=== PATIENT | female | born 1955 | race Caucasian/White ===

== ENCOUNTER 2018-05-02 09:43 | Outpatient (CLI) | payer MEDICARE, MEDICAID | END 2018-05-02 09:44 | disposition EMS.NT | LOC: EMS 09:43 | PROVIDERS: ATTEND Surgery | DX: S49.92XA Unspecified injury of left shoulder and upper arm, initial encounter (principal); W00.0XXA Fall on same level due to ice and snow, initial encounter ==

== ENCOUNTER 2018-05-02 10:36 | Emergency (ER) | payer MEDICARE, MEDICAID ==
--- NOTE | 2018-05-02 11:43 | XRAY Report ---
Reason: fall/pain Procedure Date: 05/02/2018 Accession Number: [id number] / [id number] Procedure: XR - Humerus LT CPT Code: FULL RESULT: EXAM: LEFT HUMERUS RADIOGRAPHY EXAM DATE: 05/02/2018 11:32 AM. CLINICAL HISTORY: Fall/pain. COMPARISON: None. TECHNIQUE: 2 views. FINDINGS: Bones: There is a fracture of the proximal left humerus, likely the surgical with minimal comminution. Suggest detailed left shoulder x-rays. Otherwise the left humerus is intact. Joints: Grossly anatomically aligned. Soft Tissues: Mild soft tissue swelling. IMPRESSION: Proximal left humerus fracture. Suggest detailed left shoulder plain films to define the fracture lines. RADIA
[2018-05-02] MEDS ORDERED: HYDROcod/ACETAM 5/325 MG TABLET PO STA (12:35)
[2018-05-02] MEDS ORDERED: oxyCODONE 5 MG TABLET PO STA (12:35)
--- NOTE | 2018-05-02 12:56 | ED Physician Documentation ---
PD HPI UPPER EXT INJURY - Stated complaint Stated Complaint: L ARM INJURY - Chief complaint Chief Complaint: Trauma Ext - History obtained from History obtained from: Patient, Family - History of Present Illness Location: Left, Shoulder Type of injury: Fall Where injury occurred: Home Timing - onset: Yesterday Timing - duration: Days (1) Timing - details: Abrupt onset Pain level max: 10 Pain level now: 8 Improved by: Rest, Ice, Immobilization Worsened by: Moving, Palpating Associated symptoms: Discolored (bruising). No: Weakness, Numbness, Tingling, Swelling Contributing factors: No: Anticoagulated, Prior ortho surgery Similar symptoms before: Has not had sx before Recently seen: Not recently seen Review of Systems Constitutional: denies: Fever, Chills Skin: denies: Rash Musculoskeletal: denies: Neck pain, Back pain Neurologic: denies: Headache PD PAST MEDICAL HISTORY - Past Medical History Cardiovascular: Hypertension, High cholesterol Respiratory: None Endocrine/Autoimmune: None GI: GERD : Frequency HEENT: Chronic sinusitis Psych: Anxiety, Post traumatic stress disorder Derm: None - Past Surgical History Past Surgical History: Yes HEENT: Tonsil/Adenoidectomy - Present Medications Home Medications: Ambulatory Orders Medication Instructions Recorded Confirmed Alprazolam [Xanax] 1 tab PO BID PRN 02/02/15 05/02/18 Lisinopril 20 mg pe PO DAILY 02/02/15 05/02/18 Ranitidine HCl [Zantac] 1 tab PO DAILY 02/02/15 05/02/18 Atorvastatin Calcium 20 mg PO DAILY 05/02/18 05/02/18 Citalopram [CeleXA] 1 tab PO DAILY 05/02/18 05/02/18 Oxycodone HCl/Acetaminophen 1 - 2 each PO Q6H PRN #14 tablet 05/02/18 [Percocet 5-325 mg Tablet] - Allergies Allergies/Adverse Reactions: Allergies Allergy/AdvReac Type Severity Reaction Status Date / Time No Known Drug Allergies Allergy Verified 05/02/18 10:42 - Social History Does the pt smoke?: Yes Smoking Status: Current every day smoker Does the pt drink ETOH?: Yes Does the pt have substance abuse?: No PD ED PE NORMAL - Vitals Vital signs reviewed: Yes - General General: Alert and oriented X 3, No acute distress - HEENT HEENT: Moist mucous membranes - Neck Neck: Supple, no meningeal sign, No bony TTP - Cardiac Cardiac: RRR - Respiratory Respiratory: No respiratory distress, Clear bilaterally - Derm Derm: Warm and dry - Extremities Extremities: Other (TTP L upper arm. NVI. ecchymosis present. ) - Neuro Neuro: Alert and oriented X 3 Results - Vitals Vitals: Vital Signs - 24 hr 05/02/18 05/02/18 10:40 13:24 Temperature 36.1 C L 36.2 C L Heart Rate 91 88 Respiratory 18 18 Rate Blood Pressure 141/97 H 138/89 H O2 Saturation 95 95 Oxygen O2 Source Room air - Rads (name of study) L humerus xray Radiology: Prelim report reviewed, EMP read contemporaneously, See rad report (Proximal left humerus fracture. Suggest detailed left shoulder plain films to define the fracture lines. ) L shoulder xray Radiology: Prelim report reviewed, EMP read contemporaneously, See rad report (Left humeral head fracture ) PD MEDICAL DECISION MAKING - ED course Complexity details: reviewed results, re-evaluated patient, considered differential, d/w patient ED course: 63-year-old female with a left proximal humerus fracture after falling on the ice yesterday. She came in today for evaluation. Placed in a sling for comfort. She is right-handed. Will prescribe pain medication for home and follow-up with orthopedics. She is neurovascular intact. Patient counseled regarding signs and symptoms for which I believe and urgent re-evaluation would be necessary. Patient with good understanding of and agreement to plan and is comfortable going home at this time This document was made in part using voice recognition software. While efforts are made to proofread this document, sound alike and grammatical errors may occur. Departure - Departure Disposition: 01 Home, Self Care Clinical Impression: Humerus fracture Qualifiers: Encounter type: initial encounter Humerus Location: proximal Fracture type: closed Fracture morphology: unspecified fracture morphology Laterality: left Qualified Code(s): S42.202A - Unspecified fracture of upper end of left humerus, initial encounter for closed fracture Condition: Good Instructions: ED Fx Upper Ext Follow-Up: Pavan Wolf MD [Primary Care Provider] - [facility] [Provider Group] - Within 1 week Prescriptions: Oxycodone HCl/Acetaminophen [Percocet 5-325 mg Tablet] 1 - 2 each PO Q6H PRN #14 tablet PRN Reason: pain Comments: Use the pain medication as needed. Stay in the sling until released by orthopedics. Follow-up with orthopedics for further care. Do not drink alcohol or drive while on narcotic pain medicine. Note that many narcotic pain relievers also contain tylenol/acetaminophen. Please ensure that your total dose of acetaminophen from all sources does not exceed 3 grams (3000mg) per day. You may constipated on this medication, take a stool softener such as "Colace" twice a day while you are on it. Also recommend a kvjn-zjg-pvjoiek laxative such as senna or MiraLAX any day that you do not have a bowel movement. If you received narcotic pain medication in the emergency department, do not drive or operate machinery for the next 24 hours. Discharge Date/Time: 05/02/18 13:20
[2018-05-02 13:27] VITALS: BP 138/89
--- NOTE | 2018-05-02 14:01 | XRAY Report ---
Reason: LEFT HUMERUS FRACTURE Procedure Date: 05/02/2018 Accession Number: [id number] / [id number] Procedure: XR - Shoulder 2 View LT CPT Code: FULL RESULT: EXAM: LEFT SHOULDER RADIOGRAPHY EXAM DATE: 05/02/2018 01:00 PM. CLINICAL HISTORY: LEFT HUMERUS FRACTURE. COMPARISON: None. TECHNIQUE: 2 views. FINDINGS: Bones: Left humeral comminuted surgical neck fracture. Humeral head remains anatomically aligned with one toy. Joints: The glenohumeral and acromioclavicular joints show minor degenerative change. Soft tissues: The included hemithorax is unremarkable. Mild soft tissue swelling. IMPRESSION: Left humeral head fracture RADIA
== END 2018-05-02 13:20 | disposition home or self-care (01) ==
LOC: ED 10:36
DX: S42.202A Unspecified fracture of upper end of left humerus, initial encounter for closed fracture (principal); W00.0XXA Fall on same level due to ice and snow, initial encounter; Y92.009 Unspecified place in unspecified non-institutional (private) residence as the place of occurrence of the external cause; I10 Essential (primary) hypertension; E78.00 Pure hypercholesterolemia, unspecified; F17.200 Nicotine dependence, unspecified, uncomplicated
CPT/HCPCS: 73030; 73060; 99283; A9270

== ENCOUNTER 2018-08-16 10:10 | Emergency (ER) | payer MEDICARE, MEDICAID ==
--- NOTE | 2018-08-16 11:10 | ED Physician Documentation ---
PD HPI LOWER EXT INJURY - Stated complaint Stated Complaint: R LEG INJ - Chief complaint Chief Complaint: Trauma Ext - History obtained from History obtained from: Patient - History of Present Illness PD HPI LOW EXT INJURY LOCATION: Right, Upper leg Type of injury: Fall Where injury occurred: Home Timing - onset: How many days ago (6) Worsened by: Moving, Palpating Similar symptoms before: Has not had sx before - Additional information Additional information: The patient is a 63-year-old female who presents with pain in her right leg. 6 days ago she tripped and fell in her house, landing on hardwood sandra. She was able to stand initially after the injury, but it has been constantly aching with intermittent sharp pain since that time. The pain is worse with movement, palpation, or weightbearing. She denies any other injuries. Past history is significant for ORIF of a right tib-fib fracture many years ago. Review of Systems Constitutional: denies: Fever Nose: denies: Congestion Throat: denies: Sore throat Cardiac: denies: Chest pain / pressure Respiratory: denies: Dyspnea, Cough GI: denies: Abdominal Pain, Vomiting : denies: Dysuria Skin: denies: Rash Musculoskeletal: reports: Extremity pain (right upper leg). denies: Back pain Neurologic: denies: Focal weakness, Numbness, Headache, Head injury PD PAST MEDICAL HISTORY - Past Medical History Cardiovascular: Hypertension, High cholesterol Respiratory: None Endocrine/Autoimmune: None GI: GERD : Frequency HEENT: Chronic sinusitis Psych: Anxiety, Post traumatic stress disorder Derm: None - Past Surgical History Past Surgical History: Yes HEENT: Tonsil/Adenoidectomy - Present Medications Home Medications: Ambulatory Orders Medication Instructions Recorded Confirmed Alprazolam [Xanax] 1 tab PO BID PRN 02/02/15 05/02/18 Lisinopril 20 mg pe PO DAILY 02/02/15 05/02/18 Ranitidine HCl [Zantac] 1 tab PO DAILY 02/02/15 05/02/18 Atorvastatin Calcium 20 mg PO DAILY 05/02/18 05/02/18 Citalopram [CeleXA] 1 tab PO DAILY 05/02/18 05/02/18 Oxycodone HCl/Acetaminophen 1 - 2 each PO Q6H PRN #14 tablet 05/02/18 [Percocet 5-325 mg Tablet] - Allergies Allergies/Adverse Reactions: Allergies Allergy/AdvReac Type Severity Reaction Status Date / Time No Known Drug Allergies Allergy Verified 08/16/18 10:31 - Social History Does the pt smoke?: Yes Smoking Status: Current every day smoker Does the pt drink ETOH?: Yes Does the pt have substance abuse?: No PD ED PE NORMAL - Vitals Vital signs reviewed: Yes (hypertensive) - General General: Alert and oriented X 3, Well developed/nourished - HEENT HEENT: Atraumatic - Neck Neck: No bony TTP - Cardiac Cardiac: RRR - Respiratory Respiratory: No respiratory distress, Clear bilaterally - Abdomen Abdomen: Soft, Non tender - Back Back: No spinal TTP - Derm Derm: No rash - Extremities Extremities: No edema, No calf tenderness / cord, Other (There is faint ecchymosis on the lateral aspect of the right proximal thigh, with associated tenderness to palpation. There is no break in the integument, and no hip tenderness. There are well-healed surgical scars of the lower leg, with slightly decreased light touch sensation distal to the surgical scarring.) - Neuro Neuro: Alert and oriented X 3, No motor deficit, Normal speech Results - Vitals Vitals: Vital Signs - 24 hr 08/16/18 08/16/18 10:26 12:56 Temperature 36.8 C 36.4 C L Heart Rate 86 78 Respiratory 16 12 Rate Blood Pressure 158/111 H 176/104 H O2 Saturation 98 98 Oxygen O2 Source Room air - Rads (name of study) right femur Radiology: Prelim report reviewed, EMP read contemporaneously, See rad report (No evidence of fracture or other bony abnormality.) PD MEDICAL DECISION MAKING - ED course Complexity details: reviewed old records, reviewed results, re-evaluated patient, considered differential, d/w patient ED course: The patient's presentation is most consistent with contusion to the right thigh. There is no evidence of bony abnormality on radiographic imaging of the femur. Treatment in the emergency department included administration of oxycodone 5 mg orally. I discussed with her the expected course of injury, symptomatic treatment and outpatient follow-up, as well as potentially worrisome signs or symptoms that should prompt reevaluation in the emergency department. Departure - Departure Disposition: 01 Home, Self Care Clinical Impression: Contusion of right thigh Qualifiers: Encounter type: initial encounter Qualified Code(s): S70.11XA - Contusion of right thigh, initial encounter Condition: Stable Instructions: ED Contusion Lower Ext Follow-Up: Pavan Wolf MD [Primary Care Provider] - Comments: Apply ice pack to your right thigh intermittently. You can use previously prescribed pain medication as needed. Let pain be your guide to activity level. Follow-up with your primary physician within 2 weeks. Call to schedule an appointment. Return to the emergency department if you develop increasing pain or swelling, or otherwise worse Discharge Date/Time: 08/16/18 13:04
--- NOTE | 2018-08-16 11:55 | XRAY Report ---
Reason: fall Procedure Date: 08/16/2018 Accession Number: [id number] / [id number] Procedure: XR - Femur 2V RT CPT Code: FULL RESULT: EXAM: RIGHT FEMUR RADIOGRAPHY EXAM DATE: 08/16/2018 11:00 AM. CLINICAL HISTORY: Fall. COMPARISON: HUMERUS LT 05/02/2018 11:22 AM. TECHNIQUE: 2 views. FINDINGS: Bones: Osteopenia No fracture or bone lesion. Post plate and screws in the tibia Joints: Degenerative changes at the knee. Mild degenerative changes at the hip. Soft Tissues: Normal. No soft tissue swelling. IMPRESSION: Normal femur radiography. If the patient cannot ambulate recommend MRI RADIA
[2018-08-16] MEDS ORDERED: oxyCODONE 5 MG TABLET PO STA (12:28)
[2018-08-16 12:57] VITALS: BP 176/104
== END 2018-08-16 13:04 | disposition home or self-care (01) ==
LOC: ED 10:10
DX: S70.11XA Contusion of right thigh, initial encounter (principal); W01.0XXA Fall on same level from slipping, tripping and stumbling without subsequent striking against object, initial encounter; Y92.009 Unspecified place in unspecified non-institutional (private) residence as the place of occurrence of the external cause; I10 Essential (primary) hypertension; F17.200 Nicotine dependence, unspecified, uncomplicated
CPT/HCPCS: 73552; 99282; 99283; A9270

== ENCOUNTER 2019-03-27 09:20 | Outpatient (CLI) | payer MEDICARE, MEDICAID ==
[2019-03-27 11:57] LABS: BASOPHILS # (AUTO) 0.1 10^3/uL (0.0-0.1); BASOPHILS % (AUTO) 1.3 %; EOSINOPHILS # (AUTO) 0.2 10^3/uL (0.0-0.7); HGB - HEMOGLOBIN 12.3 g/dL (12.0-16.0); LYMPHOCYTES # (AUTO) 1.2 10^3/uL (1.5-3.5); LYMPHOCYTES % (AUTO) 21.8 %; MEAN CORPUSCULAR HEMOGLOBIN 32.5 pg (27.0-31.0); MEAN CORPUSCULAR HGB CONC 32.5 g/dL (32.0-36.0); MONOCYTES # (AUTO) 0.4 10^3/uL (0.0-1.0); NEUTROPHILS # (AUTO) 3.6 10^3/uL (1.5-6.6); NEUTROPHILS % (AUTO) 64.4 %; PLT - PLATELET COUNT 230 10^3/uL (130-450); RED BLOOD COUNT 3.79 10^6/uL (4.20-5.40); RED CELL DISTRIBUTION WIDTH 15.4 % (12.0-15.0); WHITE BLOOD COUNT 5.5 x10^3/uL (4.8-10.8)
[2019-03-27 12:31] LABS: ALBUMIN 3.5 g/dL (3.2-5.5); ALBUMIN/GLOBULIN RATIO 1.1 (1.0-2.2); ALKALINE PHOSPHATASE 139 IU/L (42-121); ALT ALANINE AMINOTRANSFERASE 12 IU/L (10-60); AST ASPARTATE AMINOTRANSFERASE 27 IU/L (10-42); BILIRUBIN,TOTAL 0.8 mg/dL (0.2-1.0); BUN - BLOOD UREA NITROGEN 6 mg/dL (6-20); CALCIUM 8.6 mg/dL (8.5-10.3); CARBON DIOXIDE - CO2 25 mmol/L (21-32); CHLORIDE 105 mmol/L (101-111); CHOLESTEROL 140 mg/dL; CREATININE 0.8 mg/dL (0.4-1.0); GFR - MDRD 72 (>89); GLUCOSE 110 mg/dL (70-100); HDL CHOLESTEROL 47 mg/dL; SODIUM 140 mmol/L (135-145); TOTAL PROTEIN 6.7 g/dL (6.7-8.2)
[2019-03-27 13:55] LABS: HB2 TOTAL 12.2 g/dL; HEMOGLOBIN A1C 0.37 g/dL; HEMOGLOBIN A1C % 4.9 % (4.6-6.2)
[2019-03-27 14:06] LABS: LDL CHOLESTEROL,DIRECT 34 mg/dL; LDLD/HDL RATIO 0.7 (<4.4)
== END 2019-03-27 23:59 | disposition home or self-care (01) ==
LOC: LAB.N 09:20
PROVIDERS: ATTEND Family Medicine
DX: E11.9 Type 2 diabetes mellitus without complications (principal); I10 Essential (primary) hypertension; E78.5 Hyperlipidemia, unspecified
CPT/HCPCS: 36415; 80053; 80061; 83036; 83721; 84443; 85025

== ENCOUNTER 2019-11-18 10:17 | Outpatient (CLI) | payer MEDICARE, MEDICAID ==
--- NOTE | 2019-11-19 09:44 | Mammography Report ---
BILATERAL DIGITAL SCREENING MAMMOGRAM 3D/2D: 11/18/2019 CLINICAL: Routine screening. Comparison is made to exams dated: 11/04/2017 mammogram, 12/03/2015 mammogram, and 08/29/2013 mammogram - [facility]. There are scattered fibroglandular elements in both breasts. No significant masses, calcifications, or other findings are seen in either breast. There has been no significant interval change. IMPRESSION: NEGATIVE There is no mammographic evidence of malignancy. A 1 year screening mammogram is recommended. This exam was interpreted at Station ID: [id number]. NOTE: For mammograms, a report in lay terms will be sent to the patient. Approximately 15% of breast malignancies will not be visualized mammographically. In the management of a palpable breast mass, a negative mammogram must not discourage biopsy of a clinically suspicious lesion. Electronically Signed By: Jesus Boo M.D. ddp/penrad:11/18/2019 13:35:54 ACR BI-RADS Category 1: Negative 3341F PARENCHYMAL PATTERN: (A) - The breast(s) demonstrate(s) scattered fibroglandular densities. BI-RADS CATEGORY: (1) - 1 RECOMMENDATION: (ANNUAL) - Recommend routine annual screening mammography. [id number] 1 year screening LATERALITY: (B)
== END 2019-11-18 10:18 | disposition home or self-care (01) ==
LOC: DI.N 10:17
PROVIDERS: ATTEND Nurse Practitioner
DX: Z12.31 Encounter for screening mammogram for malignant neoplasm of breast (principal)
CPT/HCPCS: 77063; 77067

== ENCOUNTER 2019-12-16 08:00 | Outpatient (CLI) | payer MEDICARE, MEDICAID ==
[2019-12-16 12:26] LABS: CHOL/HDL RATIO 5.9 (<4.4); CHOLESTEROL 249 mg/dL; HDL CHOLESTEROL 42 mg/dL; LDL CHOLESTEROL,CALCULATED 140 mg/dL; LDL/HDL RATIO 3.3 (<4.4); VLDL CHOLESTEROL 67 mg/dL
== END 2019-12-16 23:59 | disposition home or self-care (01) ==
LOC: LAB.WCP 08:00
PROVIDERS: ATTEND Family Medicine
DX: E78.5 Hyperlipidemia, unspecified (principal)
CPT/HCPCS: 36415; 80061; 83721

== ENCOUNTER 2020-01-01 07:00 | Outpatient (CLI) | payer MEDICARE, MEDICAID | END 2020-01-01 23:59 | disposition home or self-care (01) | LOC: LAB.R 07:00 | PROVIDERS: ATTEND Nurse Practitioner Family | DX: R35.0 Frequency of micturition (principal) | CPT/HCPCS: 87086 ==

== ENCOUNTER 2020-02-20 08:00 | Outpatient (CLI) | payer MEDICARE, MEDICAID ==
[2020-02-20 12:54] LABS: BASOPHILS # (AUTO) 0.1 10^3/uL (0.0-0.1); BASOPHILS % (AUTO) 0.9 %; EOSINOPHILS # (AUTO) 0.2 10^3/uL (0.0-0.7); EOSINOPHILS % (AUTO) 3.3 %; HGB - HEMOGLOBIN 13.6 g/dL (12.0-16.0); LYMPHOCYTES # (AUTO) 1.9 10^3/uL (1.5-3.5); LYMPHOCYTES % (AUTO) 27.1 %; MEAN CORPUSCULAR HEMOGLOBIN 33.7 pg (27.0-31.0); MEAN CORPUSCULAR HGB CONC 34.8 g/dL (32.0-36.0); MEAN CORPUSCULAR VOLUME 96.8 fL (81.0-99.0); MEAN PLATELET VOLUME 10.6 fL (7.9-10.8); MONOCYTES # (AUTO) 0.4 10^3/uL (0.0-1.0); MONOCYTES % (AUTO) 6.2 %; NEUTROPHILS # (AUTO) 4.3 10^3/uL (1.5-6.6); NEUTROPHILS % (AUTO) 61.8 %; PLT - PLATELET COUNT 293 10^3/uL (130-450); RED BLOOD COUNT 4.04 10^6/uL (4.20-5.40); RED CELL DISTRIBUTION WIDTH 14.4 % (12.0-15.0); WHITE BLOOD COUNT 6.9 x10^3/uL (4.8-10.8)
[2020-02-20 13:04] LABS: HEMOGLOBIN A1c% 5.3 % (4.27-6.07)
[2020-02-20 13:27] LABS: ALBUMIN 4.2 g/dL (3.2-5.5); ALBUMIN/GLOBULIN RATIO 1.4 (1.0-2.2); ALKALINE PHOSPHATASE 155 IU/L (42-121); ALT ALANINE AMINOTRANSFERASE 11 IU/L (10-60); AST ASPARTATE AMINOTRANSFERASE 27 IU/L (10-42); BUN - BLOOD UREA NITROGEN 14 mg/dL (6-20); CALCIUM 9.4 mg/dL (8.5-10.3); CARBON DIOXIDE - CO2 26 mmol/L (21-32); CHLORIDE 88 mmol/L (101-111); CHOL/HDL RATIO 2.9 (<4.4); CHOLESTEROL 170 mg/dL; GLUCOSE 116 mg/dL (70-100); HDL CHOLESTEROL 59 mg/dL; LDL CHOLESTEROL,CALCULATED 62 mg/dL; LDL/HDL RATIO 1.1 (<4.4); SODIUM 127 mmol/L (135-145); TOTAL PROTEIN 7.3 g/dL (6.7-8.2); VLDL CHOLESTEROL 49 mg/dL
== END 2020-02-20 23:59 | disposition home or self-care (01) ==
LOC: LAB.WCP 08:00
PROVIDERS: ATTEND Nurse Practitioner
DX: E11.9 Type 2 diabetes mellitus without complications (principal); I10 Essential (primary) hypertension; N19 Unspecified kidney failure; E78.5 Hyperlipidemia, unspecified; F41.8 Other specified anxiety disorders; K21.9 Gastro-esophageal reflux disease without esophagitis
CPT/HCPCS: 36415; 80053; 80061; 82043; 82570; 83036; 83721; 84443; 85025

== ENCOUNTER 2020-12-29 08:00 | Outpatient (CLI) | payer MEDICARE, MEDICAID ==
[2020-12-29 12:14] LABS: BASOPHILS # (AUTO) 0.1 10^3/uL (0.0-0.1); BASOPHILS % (AUTO) 1.2 %; EOSINOPHILS # (AUTO) 0.3 10^3/uL (0.0-0.7); EOSINOPHILS % (AUTO) 4.5 %; HCT - HEMATOCRIT 44.6 % (37.0-47.0); HGB - HEMOGLOBIN 14.3 g/dL (12.0-16.0); LYMPHOCYTES % (AUTO) 29.3 %; MEAN CORPUSCULAR HEMOGLOBIN 27.9 pg (27.0-31.0); MEAN CORPUSCULAR HGB CONC 32.1 g/dL (32.0-36.0); MEAN CORPUSCULAR VOLUME 86.9 fL (81.0-99.0); MEAN PLATELET VOLUME 11.7 fL (7.9-10.8); MONOCYTES # (AUTO) 0.6 10^3/uL (0.0-1.0); MONOCYTES % (AUTO) 8.4 %; NEUTROPHILS # (AUTO) 3.9 10^3/uL (1.5-6.6); NEUTROPHILS % (AUTO) 56.2 %; PLT - PLATELET COUNT 244 10^3/uL (130-450); RED BLOOD COUNT 5.13 10^6/uL (4.20-5.40); RED CELL DISTRIBUTION WIDTH 14.7 % (12.0-15.0); WHITE BLOOD COUNT 6.9 x10^3/uL (4.8-10.8)
[2020-12-29 12:24] LABS: ESTIMATED AVERAGE GLUCOSE 111 mg/dL (70-100); HEMOGLOBIN A1c% 5.5 % (4.27-6.07); MICROALBUM/CREATININE RATIO,UR 389.1 ug/mg (<30.0); MICROALBUMIN,URINE 17.9 mg/dL (0-300.0)
[2020-12-29 12:40] LABS: THYROID STIMULATING HORMONE 4.09 uIU/mL (0.34-5.60)
[2020-12-29 13:19] LABS: ALBUMIN 3.6 g/dL (3.2-5.5); ALBUMIN/GLOBULIN RATIO 1.1 (1.0-2.2); ALKALINE PHOSPHATASE 113 IU/L (42-121); ALT ALANINE AMINOTRANSFERASE 11 IU/L (10-60); AST ASPARTATE AMINOTRANSFERASE 13 IU/L (10-42); BILIRUBIN,TOTAL 0.4 mg/dL (0.2-1.0); BUN - BLOOD UREA NITROGEN 20 mg/dL (6-20); CALCIUM 9.1 mg/dL (8.5-10.3); CARBON DIOXIDE - CO2 25 mmol/L (21-32); CHLORIDE 105 mmol/L (101-111); CHOLESTEROL 300 mg/dL; CREATININE 1.2 mg/dL (0.4-1.0); GFR - MDRD 45 (>89); GLUCOSE 106 mg/dL (70-100); HDL CHOLESTEROL 50 mg/dL; LDL CHOLESTEROL,CALCULATED 191 mg/dL; LDL/HDL RATIO 3.8 (<4.4); POTASSIUM 4.2 mmol/L (3.5-5.0); SODIUM 139 mmol/L (135-145); TOTAL PROTEIN 6.9 g/dL (6.7-8.2); TRIGLYCERIDES 293 mg/dL; VLDL CHOLESTEROL 59 mg/dL
== END 2020-12-29 23:59 | disposition home or self-care (01) ==
LOC: LAB.WCP 08:00
PROVIDERS: ATTEND Family Medicine
DX: E11.9 Type 2 diabetes mellitus without complications (principal)
CPT/HCPCS: 36415; 80053; 80061; 82043; 82570; 83036; 83721; 84443; 85025

== ENCOUNTER 2021-09-22 19:02 | Emergency (ER) | payer MEDICARE, MEDICAID ==
[2021-09-22 19:58] LABS: GLUCOSE, URINE (UA) NEGATIVE (NEGATIVE); KETONES,URINE (UA) TRACE mg/dL (NEGATIVE); LEUKOCYTE ESTERASE, URINE SMALL (NEGATIVE); NITRITE,URINE NEGATIVE (NEGATIVE); OCCULT BLOOD,URINE NEGATIVE (NEGATIVE); PH,URINE 5.5 PH (5.0-7.5); PROTEIN,URINE 100 mg/dL (NEGATIVE); UROBILINOGEN,URINE 0.2 (NORMAL) E.U./dL (NORMAL)
[2021-09-22 20:03] LABS: BILIRUBIN,URINE NEGATIVE (NEGATIVE); CLARITY,URINE HAZY (CLEAR); ICTOTEST,URINE NEGATIVE
[2021-09-22 20:06] LABS: BASOPHILS # (AUTO) 0.1 10^3/uL (0.0-0.1); BASOPHILS % (AUTO) 0.5 %; EOSINOPHILS # (AUTO) 0.1 10^3/uL (0.0-0.7); HCT - HEMATOCRIT 48.6 % (37.0-47.0); HGB - HEMOGLOBIN 16.1 g/dL (12.0-16.0); LYMPHOCYTES # (AUTO) 1.5 10^3/uL (1.5-3.5); LYMPHOCYTES % (AUTO) 15.3 %; MEAN CORPUSCULAR HEMOGLOBIN 28.8 pg (27.0-31.0); MEAN CORPUSCULAR HGB CONC 33.1 g/dL (32.0-36.0); MEAN CORPUSCULAR VOLUME 86.9 fL (81.0-99.0); MEAN PLATELET VOLUME 10.9 fL (7.9-10.8); MONOCYTES # (AUTO) 0.8 10^3/uL (0.0-1.0); MONOCYTES % (AUTO) 8.5 %; NEUTROPHILS # (AUTO) 7.1 10^3/uL (1.5-6.6); NEUTROPHILS % (AUTO) 74.3 %; PLT - PLATELET COUNT 227 10^3/uL (130-450); RED BLOOD COUNT 5.59 10^6/uL (4.20-5.40); RED CELL DISTRIBUTION WIDTH 13.6 % (12.0-15.0); WHITE BLOOD COUNT 9.6 x10^3/uL (4.8-10.8)
[2021-09-22 20:15] LABS: BACTERIA,URINE Moderate /HPF (None Seen); RBC,URINE 0-5 /HPF (0-5); SQUAMOUS EPITHELIAL CELL,UR MOD Squamous (<= Few)
[2021-09-22 20:18] LABS: ALBUMIN 3.7 g/dL (3.2-5.5); ALKALINE PHOSPHATASE 99 IU/L (42-121); ALT ALANINE AMINOTRANSFERASE < 10 IU/L (10-60); AST ASPARTATE AMINOTRANSFERASE 14 IU/L (10-42); BILIRUBIN,TOTAL 0.6 mg/dL (0.2-1.0); BUN - BLOOD UREA NITROGEN 19 mg/dL (6-20); CALCIUM 9.2 mg/dL (8.5-10.3); CARBON DIOXIDE - CO2 25 mmol/L (21-32); CHLORIDE 99 mmol/L (101-111); CREATININE 1.5 mg/dL (0.4-1.0); GFR - MDRD 35 (>89); GLUCOSE 110 mg/dL (70-100); LIPASE 24 U/L (22-51); POTASSIUM 3.8 mmol/L (3.5-5.0); SODIUM 131 mmol/L (135-145); TOTAL PROTEIN 7.3 g/dL (6.7-8.2)
[2021-09-22] MEDS ORDERED: SODIUM CHLORIDE 0.9% 1,000 ML IV STA (20:44)
[2021-09-22] MEDS ORDERED: ONDANSETRON 4 MG/2 ML VIAL IVP STA (20:44)
[2021-09-22] MEDS ORDERED: MORPHINE 2 MG/ML CARPUJECT IVP STA (20:44)
--- NOTE | 2021-09-22 21:22 | ED Physician Documentation ---
PD HPI ABD PAIN - Stated complaint Stated Complaint: ABD/NAUSEA - Chief complaint Chief Complaint: Abd Pain - History obtained from History obtained from: Patient - Additional information Additional information: Patient is a 66-year-old female presenting for evaluation of worsening lower abdominal pain. She reports the pain has been present for least a month but worse over the last 10 days. She was evaluated in the emergency department on September 20 and was diagnosed with a possible calcified fibroid. She was given Zofran and Percocet for home and reports that her Pain is not controlled with this medication. She has not wanted to eat. She has been using the Percocet every 4 hours. She denies any vomiting. Her last bowel movement was 3 days ago. She does feel like she is passing gas. She is having normal urination. She denies fevers, chest pain or difficulty breathing. Nothing makes the pain better or worse. It is dull and sharp at times.She does have an appointment with her primary care doctor on Monday at 3 PM but does not currently have a spread cutter.She denies a history of abdominal surgeries. Review of Systems Constitutional: denies: Fever Nose: denies: Congestion Cardiac: denies: Chest pain / pressure, Palpitations Respiratory: denies: Dyspnea, Cough GI: reports: Abdominal Pain, Nausea. denies: Vomiting, Diarrhea : denies: Dysuria Skin: denies: Rash Musculoskeletal: denies: Back pain Neurologic: denies: Syncope, Headache PD PAST MEDICAL HISTORY - Past Medical History Past Medical History: Yes Cardiovascular: Hypertension, High cholesterol Respiratory: None Endocrine/Autoimmune: None GI: GERD : Frequency HEENT: Chronic sinusitis Psych: Anxiety, Post traumatic stress disorder Derm: None - Past Surgical History Past Surgical History: Yes HEENT: Tonsil/Adenoidectomy - Present Medications Home Medications: Ambulatory Orders Medication Instructions Recorded Confirmed Lisinopril 20 mg pe PO DAILY 02/02/15 09/20/21 Atorvastatin Calcium 20 mg PO DAILY 05/02/18 09/20/21 Ondansetron Odt [Zofran] 4 mg TL Q6H PRN #10 tablet 09/20/21 Oxycodone HCl/Acetaminophen 1 - 2 each PO Q6H PRN #14 tablet 09/20/21 [Percocet 5-325 mg Tablet] Oxycodone HCl/Acetaminophen 1 each PO Q6H PRN #10 tablet 09/22/21 [Percocet 5-325 mg Tablet] - Allergies Allergies/Adverse Reactions: Allergies Allergy/AdvReac Type Severity Reaction Status Date / Time codeine Allergy Rash Verified 09/22/21 19:31 - Social History Does the pt smoke?: Yes Smoking Status: Current every day smoker Does the pt drink ETOH?: Yes Does the pt have substance abuse?: No - Immunizations Immunizations are current?: Yes PD ED PE NORMAL - General General: Alert and oriented X 3, No acute distress, Well developed/nourished - HEENT HEENT: Atraumatic, Moist mucous membranes - Neck Neck: Supple, no meningeal sign - Cardiac Cardiac: RRR, No murmur, Strong equal pulses - Respiratory Respiratory: No respiratory distress, Clear bilaterally - Abdomen Abdomen: Normal bowel sounds, Soft, Non distended, Other (Lower abdominal tenderness to palpation, no rebound, no guarding, no peritonitis) - Back Back: No CVA TTP - Derm Derm: Warm and dry - Extremities Extremities: No edema - Neuro Neuro: Normal speech - Psych Psych: Normal mood Results - Vitals Vitals: Vital Signs - 24 hr 09/22/21 09/22/21 09/22/21 19:23 20:25 21:12 Temperature 36.5 C Heart Rate 121 H 92 80 Respiratory 20 17 16 Rate Blood Pressure 148/94 H 150/94 H 100/68 O2 Saturation 96 100 100 09/22/21 09/22/21 09/22/21 21:27 22:11 23:16 Temperature Heart Rate 97 81 80 Respiratory 16 16 16 Rate Blood Pressure 154/92 H 146/88 H 144/87 H O2 Saturation 97 97 97 Oxygen O2 Source Room air - Labs Labs: Laboratory Tests 09/22/21 09/22/21 09/22/21 19:55 20:00 20:00 WBC 9.6 RBC 5.59 H Hgb 16.1 H Hct 48.6 H MCV 86.9 MCH 28.8 MCHC 33.1 RDW 13.6 Plt Count 227 MPV 10.9 H Neut # (Auto) 7.1 H Lymph # (Auto) 1.5 [place] # (Auto) 0.8 Eos # (Auto) 0.1 Baso # (Auto) 0.1 Absolute Nucleated RBC 0.00 Nucleated RBC % 0.0 Sodium 131 L Potassium 3.8 Chloride 99 L Carbon Dioxide 25 Anion Gap 7.0 BUN 19 Creatinine 1.5 H Estimated GFR (MDRD) 35 L Glucose 110 H Calcium 9.2 Total Bilirubin 0.6 AST 14 ALT < 10 L Alkaline Phosphatase 99 Total Protein 7.3 Albumin 3.7 Globulin 3.6 Albumin/Globulin Ratio 1.0 Lipase 24 Urine Color DARK YELLOW Urine Clarity HAZY Urine pH 5.5 Ur Specific [place] 1.025 Urine Protein 100 H Urine Glucose (UA) NEGATIVE Urine Ketones TRACE Urine Occult Blood NEGATIVE Urine Nitrite NEGATIVE Urine Bilirubin NEGATIVE Urine Urobilinogen 0.2 (NORMAL) Ur Leukocyte Esterase SMALL H Urine RBC 0-5 Urine WBC 6-10 H Ur Squamous Epith Cells MOD Squamous H Urine Bacteria Moderate H Ur Microscopic Review INDICATED Urine Culture Comments NOT INDICATED PD MEDICAL DECISION MAKING - ED course Complexity details: reviewed results, re-evaluated patient, d/w patient, d/w family ED course: 2149 - Ultrasound had been ordered after discussion with radiologist to determine if fibroid was connected to uterus. nuclear plant technical advisor was able to pull up imaging from 2008 Of an ultrasound pelvis that demonstrated a leiomyomatous uterus with a calcified fundal fibroid Measuring 4.9 cm. There are additionally other fibroids seen. 2316 - Reviewed patient's history and image findings with on-call OB, Dr. Frederick. She will take the patient's information down and have the office call the patient in the morning for a outpatient follow-up appointment. 2320 - Patient is ambulatory, feeling much better. Feels that she can manage her pain at home. She is appreciative that we have reached out to on-call SERVICE TRANSFORMER REPAIR SUPERVISOR to help arrange for close outpatient follow-up. Patient presenting for worsening lower abdominal pain.Recently having increased pain but does have a long history of fibroids. No episodes of bleeding. Hemodynamically appears stable. Initially was tachycardic but that quickly improved even prior to receiving IV fluids. Overall her abdominal exam is reassuring without signs of peritonitis. I do not think she has ovarian torsion.Repeat CT scan was obtained to rule out other causes of increased pain, none of which are seen. Patient is better after 1 dose of pain medication and is ambulatory without difficulty. She is aware of need for close follow-up with her primary care doctor, has an appointment on Monday, as well as with gynecology. Departure - Departure Disposition: Home, Self Care Clinical Impression: Fibroid Condition: Stable Instructions: ED Fibroids Follow-Up: Giuliana Frederick DO [Provider Admit Priv/Credential] - Prescriptions: Oxycodone HCl/Acetaminophen [Percocet 5-325 mg Tablet] 1 each PO Q6H PRN #10 tablet PRN Reason: pain Comments: You were found to have a large calcified fibroid which may be the cause of your pain. If there is no change in your testing today from your previous ED visit on September 20. Please follow-up with the spread cutter that is listed on this paperwork. Please also keep your Primary care doctor's appointment on Monday. Please use the prescribed pain medication as needed. If you have any new or worsening symptoms, consider return to the emergency department. I am prescribing a short course of narcotic pain medication for you. These are potentially dangerous and addictive medications that should be used carefully. These medications may constipate you. Take an tzrh-vse-sjsfyml stool softener (docusate) twice daily with plenty of water while taking these medications. If you go 24 hours without a bowel movement, take xcta-iah-govwgnf miralax, per package instructions. Do not drink or drive while taking these medications. If you received narcotic or sedating medications while in the emergency department, do not drive for 24 hours. Store this medication in a safe, secure place and out of reach of children. It is a violation of federal law to give or sell this medication to another person or to use in a manner other than prescribed. The ED will not refill narcotic prescriptions, including prescriptions lost or stolen. To dispose of unwanted medications: 1. [facility] at [address] in [place] has a medication drop box. They accept prescription medications (in pill form) Monday through Monday 9:00 a.m. to 5:00 p.m. 2. The [facility] [employer] accepts prescription medications (in pill form only) for disposal year round. Call for more information. 3. Contact the [facility] for the next [facility] sponsored prescription drug collection event. , [phone], or [phone]; Note that many narcotic pain relievers also contain Tylenol/acetaminophen. Please ensure that your total dose of acetaminophen from all sources does not exceed 3 g (3000 mg) per day. Discharge Date/Time: 09/22/21 23:31
--- NOTE | 2021-09-22 22:35 | CT Report ---
PROCEDURE: Abdomen/Pelvis WO INDICATIONS: worsening lower abdominal pain TECHNIQUE: Noncontrast 5 mm thick sections acquired from the diaphragms to the symphysis. 5 mm coronal and sagi ttal reformats were then performed. For radiation dose reduction, the following was used: automated exposure control, adjustment of mA and/or kV according to patient size. COMPARISON: 12/21/2021. FINDINGS: Image quality: Excellent. Lung bases:There is linear atelectasis and scarring redemonstrated in the lung bases. Heart: Heart is normal in size. A large hiatal hernia is redemonstrated. ABDOMEN: Liver: No mass lesion. Gallbladder: Within normal limits without calcified gallstones. Biliary ducts: No biliary ductal dilatation. Pancreas: Unremarkable. Spleen: Normal in size. Adrenal Glands: No adrenal nodules. Kidneys and Ureters: No hydronephrosis. Stomach and Bowel: Stomach, small bowel loops, and colon are normal in caliber and wall thickness. N o pericecal inflammatory changes to suggest appendicitis. Peritoneum: No abnormal intraperitoneal fluid. No free air. Ventral Wall: No hernia. Abdominal Nodes: No retroperitoneal or mesenteric adenopathy by size criteria. Vessels: Aorta and inferior vena cava are normal in size. PELVIS: Pelvic Organs:There is a large densely calcified mass measuring up to 9.3 x 7.8 x 5.6 cm redemonstra betty within the right hemipelvis. The mass appears contiguous with the right posterolateral aspect of the uterus. The right ovary is otherwise not seen separately but evaluation is limited by absence of intravenous contrast. Bladder: Unremarkable. Pelvic Nodes: No enlarged lymph nodes. Miscellaneous: No inguinal hernias are seen. Bones: Mild superior endplate compression deformities are redemonstrated at L1-L2 as seen on the rec ent CT. Visualized osseous structures demonstrate no suspicious focal lesions. IMPRESSION: 1. Large densely calcified mass redemonstrated in the right hemipelvis. The findings are again nonspe cific and the differential includes a large exophytic fibroid or a calcified ovarian mass along other etiologies. Further evaluation may be obtained with an MRI if clinically indicated. Ultrasound may b e also helpful to identify the location of the ovary relative of the mass or if there is clinical graham picion for ovarian torsion. 2. Large hiatal hernia redemonstrated. Reviewed by: Jesus Finn MD on 09/22/2021 10:34 PM PDT Approved by: Jesus Finn MD on 09/22/2021 10:34 PM PDT Station ID: [id number]
[2021-09-22 23:18] VITALS: BP 144/87
== END 2021-09-22 23:31 | disposition home or self-care (01) ==
LOC: ED 19:02
DX: D27.0 Benign neoplasm of right ovary (principal); I10 Essential (primary) hypertension; F17.200 Nicotine dependence, unspecified, uncomplicated
CPT/HCPCS: 36415; 80053; 81001; 81003; 83690; 85025; 87086; 96374; 96375; 99284

== ENCOUNTER 2021-09-27 08:00 | Outpatient (CLI) | payer MEDICARE, MEDICAID ==
[2021-09-27 18:32] LABS: FECAL OCCULT BLOOD (FIT) POSITIVE (NEGATIVE)
== END 2021-09-27 23:59 | disposition home or self-care (01) ==
LOC: LAB.N 08:00
PROVIDERS: ATTEND Internal Medicine
DX: Z12.11 Encounter for screening for malignant neoplasm of colon (principal)
CPT/HCPCS: 82274

== ENCOUNTER 2021-09-27 12:13 | Outpatient (CLI) | payer MEDICARE, MEDICAID | END 2021-09-27 12:14 | disposition home or self-care (01) | LOC: LAB.N 12:13 | PROVIDERS: ATTEND Internal Medicine | DX: R19.09 Other intra-abdominal and pelvic swelling, mass and lump (principal); Z12.11 Encounter for screening for malignant neoplasm of colon | CPT/HCPCS: 36415; 82274; 86304 ==

== ENCOUNTER 2021-10-12 11:33 | Outpatient (CLI) | payer MEDICARE, MEDICAID | END 2021-10-12 11:34 | disposition critical access hospital (66) | LOC: EMS 11:33 | DX: R53.1 Weakness (principal); R63.0 Anorexia; R55 Syncope and collapse; R06.02 Shortness of breath | CPT/HCPCS: A0425; A0427 ==

== ENCOUNTER 2021-10-12 11:57 | Observation (INO) | payer MEDICARE, MEDICAID ==
[2021-10-12] MEDS ORDERED: SODIUM CHLORIDE 0.9% 1,000 ML IV STA (12:17)
--- NOTE | 2021-10-12 12:24 | ED Physician Documentation ---
History of Present Illness - Stated complaint Stated Complaint: WEAKNESS - Additonal information Additional information: 66-year-old female is brought to the emergency department via EMS for evaluation of syncope and generalized weakness. She reports that yesterday she was walking and suddenly fainted. She did have a very prief LOC. EMS was summoned to her house but she declined transport. Again this morning she had a syncopal episode with LOC. On arrival to the emergency department nursing staff was getting her triaged and she was talking when she again had a witnessed lapse in consciousness lasting perhaps 1 to 2 seconds. The patient woke up mildly confused but very tearful. She did not have any focal neurodeficits or slurred speech/facial droop. her NIHSS was 0 Patient was seen in this emergency department early September for lower abdominal pain found to have a calcified ovarian or pelvic mass. She has been referred to [facility] hospitalist for further evaluation of this. Patient does report to me that in the past she has had an arrhythmia which based on her description sounds like SVT. She reports that when she develops palpitations she has been told to sit on the toilet and bear down. She is not anticoagulated. She has never been told she has a history of atrial fibrillation meds: [place] as needed, lisinopril 40 mg daily, amlodipine, hydrochlorothiazide Review of Systems Constitutional: denies: Fever, Chills Eyes: reports: Reviewed and negative Ears: reports: Reviewed and negative Throat: reports: Reviewed and negative Cardiac: reports: Chest pain / pressure, Palpitations. denies: Pedal edema, Calf pain Respiratory: denies: Dyspnea, Cough GI: reports: Abdominal Pain, Constipation. denies: Nausea, Vomiting : denies: Dysuria, Frequency, Hesitancy Skin: denies: Rash, Lesions PD PAST MEDICAL HISTORY - Past Medical History Cardiovascular: Hypertension, High cholesterol Respiratory: None Endocrine/Autoimmune: None GI: GERD : Frequency HEENT: Chronic sinusitis Psych: Anxiety, Post traumatic stress disorder Derm: None - Past Surgical History Past Surgical History: Yes HEENT: Tonsil/Adenoidectomy - Present Medications Home Medications: Ambulatory Orders Medication Instructions Recorded Confirmed Lisinopril 20 mg pe PO DAILY 02/02/15 09/20/21 Atorvastatin Calcium 20 mg PO DAILY 05/02/18 09/20/21 Ondansetron Odt [Zofran] 4 mg TL Q6H PRN #10 tablet 09/20/21 Oxycodone HCl/Acetaminophen 1 - 2 each PO Q6H PRN #14 tablet 09/20/21 [Percocet 5-325 mg Tablet] Oxycodone HCl/Acetaminophen 1 each PO Q6H PRN #10 tablet 09/22/21 [Percocet 5-325 mg Tablet] - Allergies Allergies/Adverse Reactions: Allergies Allergy/AdvReac Type Severity Reaction Status Date / Time codeine Allergy Rash Verified 09/22/21 19:31 - Social History Does the pt smoke?: Yes Smoking Status: Current every day smoker Does the pt drink ETOH?: Yes Does the pt have substance abuse?: No - Immunizations Immunizations are current?: Yes PD ED PE NORMAL - General General: Alert and oriented X 3, No acute distress, Well developed/nourished - HEENT HEENT: Atraumatic, Pharynx benign - Neck Neck: Supple, no meningeal sign, No adenopathy - Cardiac Cardiac: RRR, No murmur, No gallop - Respiratory Respiratory: No respiratory distress, Clear bilaterally - Abdomen Abdomen: Normal bowel sounds. No: Non tender (Tenderness to the right lower quadrant without guarding or rebound) - Back Back: No CVA TTP, No spinal TTP - Derm Derm: Normal color, Warm and dry, No rash - Extremities Extremities: No deformity, No tenderness to palpate, Normal ROM s pain - Neuro Neuro: Alert and oriented X 3, family nurse 2-12 intact Eye Opening: Spontaneous Motor: Obeys Commands Verbal: Oriented GCS Score: 15 - Psych Psych: Normal mood Results - Vitals Vitals: Vital Signs - 24 hr 10/12/21 10/12/21 10/12/21 12:16 12:20 12:46 Temperature 37.2 C 37.2 C Heart Rate 88 88 Heart Rate [ 74 Sitting] Heart Rate [ 78 Standing] Heart Rate [ 65 Supine] Respiratory 10 L 16 Rate Blood Pressure 109/78 109/78 Blood Pressure 105/77 [Sitting] Blood Pressure 111/71 [Standing] Blood Pressure 97/66 [Supine] O2 Saturation 98 98 10/12/21 10/12/21 12:50 13:20 Temperature Heart Rate 72 76 Heart Rate [ Sitting] Heart Rate [ Standing] Heart Rate [ Supine] Respiratory 13 16 Rate Blood Pressure 112/66 112/66 Blood Pressure [Sitting] Blood Pressure [Standing] Blood Pressure [Supine] O2 Saturation 98 98 Oxygen O2 Source Room air - EKG (time done) 1211 Rate: Rate (enter#) (77) Rhythm: NSR [place]: RAD Intervals: Normal ID. No: Prolonged QT QRS: Normal Ischemia: Normal ST segments, Q waves (V1,2) Compare to prior EKG: Old EKG unavailable Computer interpretation: Agree with computer - Labs Labs: Laboratory Tests 10/12/21 10/12/21 10/12/21 12:29 12:35 12:35 WBC 10.3 RBC 4.98 Hgb 14.1 Hct 42.1 MCV 84.5 MCH 28.3 MCHC 33.5 RDW 13.7 Plt Count 313 MPV 11.5 H Neut # (Auto) 7.6 H Lymph # (Auto) 1.5 [place] # (Auto) 0.9 Eos # (Auto) 0.2 Baso # (Auto) 0.1 Absolute Nucleated RBC 0.00 Nucleated RBC % 0.0 PT 11.2 INR 1.0 Sodium Potassium Chloride Carbon Dioxide Anion Gap BUN Creatinine Estimated GFR (MDRD) Glucose Calcium Total Bilirubin AST ALT Alkaline Phosphatase Troponin I High Sens Total Protein Albumin Globulin Albumin/Globulin Ratio Lipase TSH Urine Color YELLOW Urine Clarity CLEAR Urine pH 5.5 Ur Specific [place] 1.010 Urine Protein NEGATIVE Urine Glucose (UA) NEGATIVE Urine Ketones NEGATIVE Urine Occult Blood NEGATIVE Urine Nitrite NEGATIVE Urine Bilirubin NEGATIVE Urine Urobilinogen 0.2 (NORMAL) Ur Leukocyte Esterase NEGATIVE Ur Microscopic Review NOT INDICATED Urine Culture Comments NOT INDICATED 10/12/21 10/12/21 10/12/21 12:35 12:35 12:35 WBC RBC Hgb Hct MCV MCH MCHC RDW Plt Count MPV Neut # (Auto) Lymph # (Auto) Clarke # (Auto) Eos # (Auto) Baso # (Auto) Absolute Nucleated RBC Nucleated RBC % PT INR Sodium 133 L Potassium 3.8 Chloride 99 L Carbon Dioxide 23 Anion Gap 11.0 BUN 54 H Creatinine 2.4 H Estimated GFR (MDRD) 20 L Glucose 90 Calcium 9.1 Total Bilirubin 0.6 AST 11 ALT < 10 L Alkaline Phosphatase 94 Troponin I High Sens 6.5 Total Protein 6.9 Albumin 3.4 Globulin 3.5 Albumin/Globulin Ratio 1.0 Lipase 39 TSH 0.46 Urine Color Urine Clarity Urine pH Ur Specific [place] Urine Protein Urine Glucose (UA) Urine Ketones Urine Occult Blood Urine Nitrite Urine Bilirubin Urine Urobilinogen Ur Leukocyte Esterase Ur Microscopic Review Urine Culture Comments - Rads (name of study) CXR Radiology: Final report received (No acute cardiopulmonary process) CT head Radiology: Final report received (No acute intracranial abnormalities) PD MEDICAL DECISION MAKING - ED course Complexity details: reviewed results, re-evaluated patient, d/w patient ED course: 66-year-old female presents emergency department for evaluation of 3 recurrent syncopal episodes with lapse of consciousness over the last 24 hours. She did have a very brief episode on presentation to the emergency department. She has no focal neurodeficits and her NIHSS is 0. CT head is negative Orthostatics were completed and are negative today but in comparison to her recent ER visits her blood pressures are markedly lower. She is noted ot be on 40 mg lisinopril daily as well as amlodipine and HCTZ. We did do screening labs she is found to have negative troponin but an acutely deranged BUN and creatinine in comparison to recent ER visit. She is repleted in the emergency department with 1 L crystalloid. However given recurrent syncope and acute kidney injury she was presented to our hospitalist for admission who accepts for furhter evaluation and treatment of RICH and recurrent syncope. Departure - Departure Disposition: ED Place in Observation Clinical Impression: Acute kidney injury, Recurrent syncope Condition: Serious NIHSS - Time Time: 12:30 - Level of Consciousness Level of consciousness: (3) Responds only with reflex motor or autonomic effects LOC Questions: (0) Answers both Q's correct LOC Commands: (0) Performs both correctly - Gaze Best Gaze: (0) Normal - Visual Visual: (0) No loss - Facial Palsy Facial Palsy: (0) Normal, symmetrical movement - Motor Arms (both separate) Motor Arm (right): (0) No drift Motor Arm (left): (0) No drift - Motor Legs (both separate) Motor Leg (right): (0) No drift Motor Leg (left): (0) No drift - Limb Ataxia Limb Ataxia: (0) Absent - Sensory Sensory: (0) Normal - Dysarthria Dysarthria: (0) Normal - Extinction and Inattention (formally neg Extinction and inattention: (0) No abnormality
[2021-10-12 12:44] LABS: BASOPHILS # (AUTO) 0.1 10^3/uL (0.0-0.1); BASOPHILS % (AUTO) 0.7 %; EOSINOPHILS # (AUTO) 0.2 10^3/uL (0.0-0.7); EOSINOPHILS % (AUTO) 1.6 %; HCT - HEMATOCRIT 42.1 % (37.0-47.0); HGB - HEMOGLOBIN 14.1 g/dL (12.0-16.0); LYMPHOCYTES # (AUTO) 1.5 10^3/uL (1.5-3.5); LYMPHOCYTES % (AUTO) 14.6 %; MEAN CORPUSCULAR HEMOGLOBIN 28.3 pg (27.0-31.0); MEAN CORPUSCULAR HGB CONC 33.5 g/dL (32.0-36.0); MEAN CORPUSCULAR VOLUME 84.5 fL (81.0-99.0); MEAN PLATELET VOLUME 11.5 fL (7.9-10.8); MONOCYTES # (AUTO) 0.9 10^3/uL (0.0-1.0); MONOCYTES % (AUTO) 8.6 %; NEUTROPHILS # (AUTO) 7.6 10^3/uL (1.5-6.6); PLT - PLATELET COUNT 313 10^3/uL (130-450); RED BLOOD COUNT 4.98 10^6/uL (4.20-5.40); RED CELL DISTRIBUTION WIDTH 13.7 % (12.0-15.0); WHITE BLOOD COUNT 10.3 x10^3/uL (4.8-10.8)
[2021-10-12 12:49] LABS: PT - PROTHROMBIN TIME 11.2 secs (9.9-12.6)
[2021-10-12 13:00] LABS: ALBUMIN 3.4 g/dL (3.2-5.5); ALKALINE PHOSPHATASE 94 IU/L (42-121); ALT ALANINE AMINOTRANSFERASE < 10 IU/L (10-60); AST ASPARTATE AMINOTRANSFERASE 11 IU/L (10-42); BILIRUBIN,TOTAL 0.6 mg/dL (0.2-1.0); BUN - BLOOD UREA NITROGEN 54 mg/dL (6-20); CALCIUM 9.1 mg/dL (8.5-10.3); CARBON DIOXIDE - CO2 23 mmol/L (21-32); CHLORIDE 99 mmol/L (101-111); CREATININE 2.4 mg/dL (0.4-1.0); GFR - MDRD 20 (>89); GLUCOSE 90 mg/dL (70-100); LIPASE 39 U/L (22-51); POTASSIUM 3.8 mmol/L (3.5-5.0); SODIUM 133 mmol/L (135-145); TOTAL PROTEIN 6.9 g/dL (6.7-8.2)
--- NOTE | 2021-10-12 13:09 | XRAY Report ---
PROCEDURE: Chest 1 View X-Ray INDICATIONS: Chest Pain TECHNIQUE: One view of the chest was acquired. COMPARISON: 02/02/2015 FINDINGS: Surgical changes and devices: None. Lungs and pleura: No pleural effusions or pneumothorax. Lungs are clear. Mediastinum: Mediastinal contours appear normal. Heart size is normal. Bones and chest wall: No suspicious bony lesions. Overlying soft tissues appear unremarkable. Large hiatal hernia. IMPRESSION: No acute cardiothoracic abnormality. Large hiatal hernia. Reviewed by: Sanchez Scott MD on 10/12/2021 1:08 PM PDT Approved by: Sanchez Scott MD on 10/12/2021 1:08 PM PDT Station ID: [id number]
[2021-10-12 13:14] LABS: BILIRUBIN,URINE NEGATIVE (NEGATIVE); CLARITY,URINE CLEAR (CLEAR); GLUCOSE, URINE (UA) NEGATIVE (NEGATIVE); KETONES,URINE (UA) NEGATIVE (NEGATIVE); LEUKOCYTE ESTERASE, URINE NEGATIVE (NEGATIVE); NITRITE,URINE NEGATIVE (NEGATIVE); OCCULT BLOOD,URINE NEGATIVE (NEGATIVE); PH,URINE 5.5 PH (5.0-7.5); PROTEIN,URINE NEGATIVE (NEGATIVE); UROBILINOGEN,URINE 0.2 (NORMAL) E.U./dL (NORMAL)
--- NOTE | 2021-10-12 13:23 | CT Report ---
PROCEDURE: HEAD WO INDICATIONS: recurrent syncope TECHNIQUE: Noncontrast 4.5 mm thick angled axial sections acquired from the foramen magnum to the vertex. For r adiation dose reduction, the following was used: automated exposure control, adjustment of mA and/or kV according to patient size. COMPARISON: None. FINDINGS: Image quality: Excellent. CSF spaces: Basal cisterns are patent. No extra-axial fluid collections. Ventricles are normal in size and shape. Brain: No midline shift. No intracranial masses or hemorrhage. No mass effect. Mayen-white matter i nterface is normal. There cerebral volume loss for age with resultant ventricular and sulcal prominen ce. There are periventricular and deep white matter chronic small vessel ischemic changes. Atheroscle rotic calcifications are noted in the intracranial segments of the bilateral internal carotid arterie s. Skull and face: Calvarium and visualized facial bones are intact, without suspicious lesions. Sinuses: Visualized sinuses and mastoids are clear. IMPRESSION: CT head without acute intracranial abnormalities. Age-related senescent changes and sequ aaron of chronic small vessel ischemic disease. Reviewed by: Fan Moses MD on 10/12/2021 1:22 PM PDT Approved by: Fan Moses MD on 10/12/2021 1:22 PM PDT Station ID: [id number]
[2021-10-12] MEDS ORDERED: SODIUM CHLORIDE FLUSH 0.9% 10 ML SYRINGE IVP PRN (13:32)
[2021-10-12] MEDS ORDERED: ACETAMINOPHEN 325 MG TABLET PO PRN (13:32)
[2021-10-12] MEDS ORDERED: ONDANSETRON 4 MG/2 ML VIAL IVP PRN (13:32)
--- NOTE | 2021-10-12 13:38 | HISTORY & PHYSICAL EXAMINATION ---
Chief Complaint - Chief Complaint Chief Complaint: syncope, weakness History of Present Illness - Admitted From Admitted From:: [facility] ED - History Obtained From Records Reviewed: yes History obtained from: patient - History of Present Illness HPI Comment/Other: Patient is a 66-year-old female with medical history significant for hypertensi on, hyperlipidemia, anxiety, PTSD and history of alcohol abuse who presented to the ED with weakness and syncope. In the past 24 hours she has had 3 syncopal episodes. First 1 was last night when she woke up to go to the bathroom. She reported dizziness and lightheadedness. The patient has not been eating much lately. On 09/20/21 she was seen in the ED for abdominal discomfort. She was noted to have an abdominal mass for which she has followed up with Dr. Nhan Jiménez with [facility]. Plan is for referral to [facility] in [place]. The patient is very tearful at time of exam due to anxiety related to the abdominal mass. It is suspected that it may be a fibroid. In the ED today she was noted to have a creatinine of 2.4. On 09/20/21, creatinine was 1.1. She was presented for admission for continued treatment of acute kidney injury. At bedside she was resting comfortably. She denied chest pain, dyspnea. She reports 7 out of 10 abdominal pain which seems to be always there and which she believes is related to the abdominal mass. She reported nausea but no vomiting. She reports chills. The rest of the history is unremarkable. History - Past Medical History Cardiovascular: reports: Hypertension, High cholesterol Respiratory: reports: None Endocrine/Autoimmune: reports: None GI: reports: GERD : reports: Frequency HEENT: reports: Chronic sinusitis Psych: reports: Anxiety, Post traumatic stress disorder Derm: reports: None MRSA Hx?: No - Past Surgical History HEENT: reports: Tonsil/Adenoidectomy Other past surgical history: Right Tib/Fib repair - Family & Social History Family History Comment/Other: Per records, the patient's maternal grandmother had breast cancer. Patient's mother had hypertension. Patient's sister also had hypertension. Social History Notes: She lives at home with cristian and her sister. She smokes about half a pack of cigarettes and has been smoking for almost 50 years. She had previous history of alcohol abuse but denies any alcohol use currently. She also denies any recreational substance use but used to smoke marijuana in the past. - POLST Patient has POLST: No POLST Status: DNR Meds/Allgy - Home Medications Home Medications: Ambulatory Orders Medication Instructions Recorded Confirmed Lisinopril 40 mg PO DAILY 02/02/15 10/12/21 Oxycodone HCl/Acetaminophen 1 each PO Q6H PRN #10 tablet 09/22/21 10/12/21 [Percocet 5-325 mg Tablet] Ondansetron Odt [Zofran Odt] 4 - 8 mg TL Q6H PRN 10/12/21 10/12/21 amLODIPine [Norvasc] 5 mg PO DAILY 10/12/21 10/12/21 hydrOXYzine HCL [Hydroxyzine HCl] 25 mg PO Q8H PRN 10/12/21 10/12/21 oxyCODONE [Roxicodone] 0.5 tab PO Q8H 10/12/21 10/12/21 LORazepam [Ativan] 1 mg PO BID PRN 10 Days #20 tablet 10/13/21 - Allergies Allergies/Adverse Reactions: Allergies Allergy/AdvReac Type Severity Reaction Status Date / Time codeine Allergy Rash Verified 09/22/21 19:31 Review of Systems - Constitutional Constitutional: reports: Chills, Weakness, Poor appetite. denies: Fever - Eyes Eyes: denies: Pain, Dipolpia - Ears, Nose & Throat Ears, Nose & Throat: denies: Ear pain, Sore throat - Cardiovascular Cariovascular: reports: Lightheadedness, Syncope. denies: Irregular heart rate, Palpitations, Chest pain - Respiratory Respiratory: denies: Cough, Sputum production, Wheezing, SOB at rest, SOB with exertion - Gastrointestinal Gastrointestinal: reports: Abdominal pain, Nausea. denies: Abdominal distention, Vomiting - Genitourinary Genitourinary: denies: Dysuria, Frequency, Urgency, Hematuria - Musculoskeletal Musculoskeletal: denies: Muscle pain, Back pain, Muscle aches - Integumentary Integumentary: denies: Rash, Pruritis, Lesions - Neurological Neurological: reports: General weakness. denies: Focal weakness, Headache - Psychiatric Psychiatric: reports: Depression, Anxiety - Endocrine Endocrine: denies: Polyuria, Polydypsia - Hematologic/Lymphatic Hematologic/Lymphatic: denies: Anemia, Bruising, Petechiae Prior Level of Functionality: She is independent of activities of daily living Exam - Vital Signs Vital Signs: Vital Signs x48h Temp Pulse Pulse Pulse Pulse Resp BP 10/12/21 13:30 73 16 108/70 10/12/21 13:20 76 16 112/66 10/12/21 12:50 72 13 112/66 10/12/21 12:46 74 78 65 10/12/21 12:20 37.2 C 88 16 109/78 10/12/21 12:16 37.2 C 88 10 L 109/78 BP BP BP Pulse Ox 10/12/21 13:30 96 10/12/21 13:20 98 10/12/21 12:50 98 10/12/21 12:46 105/77 111/71 97/66 10/12/21 12:20 98 10/12/21 12:16 98 - Physical Exam General Appearance: positive: Alert, Mild distress Eyes Bilateral: positive: PERRL, EOMI ENT: positive: No signs of dehydration Neck: positive: No JVD, Trachea midline Respiratory: positive: Chest non-tender, No respiratory distress, Breath sounds nml. negative: Wheezes, Rales, Rhonchi Cardiovascular: positive: Regular rate & rhythm, No murmur Abdomen: positive: Nml bowel sounds, No distention, Tenderness (mild). negative: Guarding, Rebound Back: positive: Nml inspection Skin: positive: Color nml, No rash, Warm, Dry Extremities: positive: Non-tender, Full ROM, Nml appearance, No pedal edema Neurologic/Psychiatric: positive: Oriented x3, Depressed mood/affect Conclusion/Plan - Problem List (1) Acute kidney injury Conclusion/Plan: Likely prerenal due to dehydration from poor oral intake. Creatinine was 2.4 with estimated GFR of 20. Creatinine 3 weeks ago was 1.1 Patient was given 1 L bolus of normal saline in the ED. Will continue normal saline at 150 mL/h. Anticipating improvement in renal function. Will check a.m. labs (2) Syncope and collapse Conclusion/Plan: This is less likely due to a cardiac cause. Orthostatic vitals were negative. 2D echocardiogram ordered for the morning. Will monitor patient on telemetry. (3) Fibroid uterus Conclusion/Plan: Patient was found to have an abdominal mass upon presentation to the ED 10/08. She was seen by Dr. Nhan Jiménez with [facility] on 09/30/2021. Plans are for possible referral to [facility]/oncology Dr. Bryanna Slade in [place] Pain management with [place] as needed. Qualifiers: Uterine leiomyoma location: unspecified location Qualified Code(s): D25.9 - Leiomyoma of uterus, unspecified (4) Anxiety and depression Conclusion/Plan: This seems to be exacerbated by recent diagnosis of an abdominal mass which is suspected to be due to a fibroid. Patient was very tearful during this visit when she was told she could potentially go home tomorrow. She states she does not want to go home because her family cannot help her. What she would like is to be in the hospital and for her abdominal mass to be further worked up. I tried to explain that referrals might take a while and encouraged her to be patient. She expressed understanding. Ativan 1 mg p.o. every 8 hours as needed ordered for anxiety - Lab Results Fish Bones: 10/13/21 04:33 10/13/21 04:33 Core Measures - Anticipated LOS I expect patient to be DC'd or transferred within 96 hours.: Yes - DVT/VTE - Prophylaxis VTE/DVT Device ordered at admit?: Yes
[2021-10-12] MEDS: SODIUM CHLORIDE 0.9% 1,000 ML IV SCH ×2 (15:17→21:57)
[2021-10-12] MEDS: SODIUM CHLORIDE FLUSH 0.9% 10 ML SYRINGE IVP SCH (17:04)
[2021-10-12] MEDS: HYDROcod/ACETAM 5/325 MG TABLET PO PRN (17:44)
[2021-10-12] MEDS: LORazepam 1 MG TABLET PO PRN (17:45)
[2021-10-13] MEDS: SODIUM CHLORIDE FLUSH 0.9% 10 ML SYRINGE IVP SCH ×2 (00:08→09:10)
[2021-10-13] MEDS: HYDROcod/ACETAM 5/325 MG TABLET PO PRN ×2 (00:44→09:10)
[2021-10-13] MEDS: SODIUM CHLORIDE 0.9% 1,000 ML IV SCH (04:42)
[2021-10-13 05:15] LABS: BASOPHILS # (AUTO) 0.1 10^3/uL (0.0-0.1); EOSINOPHILS # (AUTO) 0.3 10^3/uL (0.0-0.7); EOSINOPHILS % (AUTO) 3.6 %; HCT - HEMATOCRIT 39.4 % (37.0-47.0); HGB - HEMOGLOBIN 12.9 g/dL (12.0-16.0); LYMPHOCYTES # (AUTO) 2.1 10^3/uL (1.5-3.5); LYMPHOCYTES % (AUTO) 30.9 %; MEAN CORPUSCULAR HEMOGLOBIN 27.6 pg (27.0-31.0); MEAN CORPUSCULAR HGB CONC 32.7 g/dL (32.0-36.0); MEAN CORPUSCULAR VOLUME 84.2 fL (81.0-99.0); MEAN PLATELET VOLUME 11.7 fL (7.9-10.8); MONOCYTES # (AUTO) 0.8 10^3/uL (0.0-1.0); MONOCYTES % (AUTO) 11.2 %; NEUTROPHILS # (AUTO) 3.6 10^3/uL (1.5-6.6); PLT - PLATELET COUNT 265 10^3/uL (130-450); RED BLOOD COUNT 4.68 10^6/uL (4.20-5.40); RED CELL DISTRIBUTION WIDTH 13.6 % (12.0-15.0); WHITE BLOOD COUNT 6.9 x10^3/uL (4.8-10.8)
[2021-10-13 05:24] LABS: CALCIUM 8.5 mg/dL (8.5-10.3); CREATININE 1.4 mg/dL (0.4-1.0)
[2021-10-13] MEDS ORDERED: polyethylene glycoL 3350 17 GM PACKET PO SCH (09:00)
[2021-10-13] MEDS: LORazepam 1 MG TABLET PO PRN (10:23)
[2021-10-13 11:12] VITALS: BP 126/80
--- NOTE | 2021-10-13 11:21 | DISCHARGE SUMMARY ---
Discharge Summary Admit Date: 10/12/21 Discharge Date: 10/13/21 Discharging Provider: Nico Fong Primary Care Provider: Roe Tran Code Status: Do Not Attempt Resuscitation Condition at Discharge: Stable Discharge Disposition: 01 Home, Self Care - DIAGNOSES Admission Diagnoses: Acute kidney injury Syncope and collapse Fibroid uterus Anxiety and depression Discharge Diagnoses with Status of Each Condition: Acute kidney injury: Prerenal. Secondary to dehydration. Improving. Syncope and collapse: Likely secondary to dehydration. 2D echocardiogram was unremarkable. Ejection fraction 60 to 65%. Fibroid uterus: Patient to follow-up with [facility] for referral and further work- up Anxiety and depression: Secondary to recent diagnosis of abdominal mass suspected to be due to fibroid uterus. Patient prescribed Ativan for anxiety. - HPI History of Present Illness: Patient is a 66-year-old female with medical history significant for hypertension, hyperlipidemia, anxiety, PTSD and history of alcohol abuse who presented to the ED with weakness and syncope. In the past 24 hours she has had 3 syncopal episodes. First 1 was last night when she woke up to go to the bathroom. She reported dizziness and lightheadedness. The patient has not been eating much lately. On 09/20/21 she was seen in the ED for abdominal discomfort. She was noted to have an abdominal mass for which she has followed up with Dr. Nhan Jiménez with [facility]. Plan is for referral to [facility]/Onc in [place]. The patient is very tearful at time of exam due to anxiety related to the abdominal mass. It is suspected that it may be a fibroid. In the ED today she was noted to have a creatinine of 2.4. On 09/20/21, creatinine was 1.1. She was presented for admission for continued treatment of acute kidney injury. At bedside she was resting comfortably. She denied chest pain, dyspnea. She reports 7 out of 10 abdominal pain which seems to be always there and which she believes is related to the abdominal mass. She reported nausea but no vomiting. She reports chills. The rest of the history is unremarkable. - HOSPITAL COURSE Hospital Course: Patient was admitted on 10/12/2021 for syncope. In 24 hours she had 3 episodes of passing out. Work-up in the ED showed her creatinine of 2.4. Orthostatic vitals were negative. She has been anxious and depressed lately due to diagnosis of an abdominal mass for which she needs further follow-up and work-up. As a result of her anxiety and depression she has not been eating or drinking fluid as much. She was started on IV hydration with normal saline. Over 24 hours her renal function improved. By the time of discharge creatinine was down to 1.4. She also had a 2D echocardiogram done as part of the work-up which was unremarkable. It showed an EF of 60-65%: She is being prescribed Ativan 1 mg p.o. twice daily as needed for anxiety. She will continue taking Percocet as prescribed by circuitry negative inspector or her primary care physician for abdominal pain. She may follow-up with her primary care physician as needed. She has been advised to follow-up regarding the referral to [facility]/Onc in [place]. She expressed understanding and is agreeable to this plan. She is being discharged home. - ALLERGIES Allergies/Adverse Reactions: Allergies Allergy/AdvReac Type Severity Reaction Status Date / Time codeine Allergy Rash Verified 09/22/21 19:31 - MEDICATIONS Home Medications: Ambulatory Orders Medication Instructions Recorded Confirmed Lisinopril 40 mg PO DAILY 02/02/15 10/12/21 Oxycodone HCl/Acetaminophen 1 each PO Q6H PRN #10 tablet 09/22/21 10/12/21 [Percocet 5-325 mg Tablet] Ondansetron Odt [Zofran Odt] 4 - 8 mg TL Q6H PRN 10/12/21 10/12/21 amLODIPine [Norvasc] 5 mg PO DAILY 10/12/21 10/12/21 hydrOXYzine HCL [Hydroxyzine HCl] 25 mg PO Q8H PRN 10/12/21 10/12/21 oxyCODONE [Roxicodone] 0.5 tab PO Q8H 10/12/21 10/12/21 LORazepam [Ativan] 1 mg PO BID PRN 10 Days #20 tablet 10/13/21 - PHYSICAL EXAM AT DISCHARGE General Appearance: positive: No acute distress, Alert Eyes Bilateral: positive: PERRL, EOMI ENT: positive: No signs of dehydration Neck: positive: No JVD, Trachea midline Respiratory: positive: Chest non-tender, No respiratory distress, Breath sounds nml. negative: Wheezes, Rales, Rhonchi Cardiovascular: positive: Regular rate & rhythm, No murmur Abdomen: positive: Non-tender, Nml bowel sounds, Tenderness (mild). negative: Guarding, Rebound Back: positive: Nml inspection Skin: positive: No rash, Warm, Dry Extremities: positive: Non-tender, Full ROM, Nml appearance, No pedal edema Neurologic/Psychiatric: positive: Oriented x3, Mood/affect nml - LABS Result Diagrams: 10/13/21 04:33 10/13/21 04:33 - TIME SPENT Time Spent in Discharge (Minutes): 15
--- NOTE | 2021-10-13 11:26 | Discharge Plan ---
Discharge Plan Problem Reviewed?: Yes Disposition: Home, Self Care Condition: Stable Prescriptions: LORazepam [Ativan] 1 mg PO BID PRN 10 Days #20 tablet PRN Reason: Anxiety Diet: Regular Activity Restrictions: Activity as Tolerated Weight Bearing: Full Weight Health Concerns: Patient was admitted on 10/12/2021 for syncope. In 24 hours she had 3 episodes of passing out. Work-up in the ED showed her creatinine of 2.4. Orthostatic vitals were negative. She has been anxious and depressed lately due to diagnosis of an abdominal mass for which she needs further follow-up and work-up. As a result of her anxiety and depression she has not been eating or drinking fluid as much. She was started on IV hydration with normal saline. Over 24 hours her renal function improved. By the time of discharge creatinine was down to 1.4. She also had a 2D echocardiogram done as part of the work-up which was unremarkable. It showed an EF of 60-65%: She is being prescribed Ativan 1 mg p.o. twice daily as needed for anxiety. She will continue taking Percocet as prescribed by primary grade teacher or her primary care physician for abdominal pain. She may follow-up with her primary care physician as needed. She has been advised to follow-up regarding the referral to [facility]/Onc in [place]. She expressed understanding and is agreeable to this plan. She is being discharged home. No Smoking: If you smoke, Please STOP! Call for help. Follow-up with: Roe Oconnell MD [Primary Care Provider] -
[2021-10-13] MEDS ORDERED: lisinopriL 20 MG TABLET PO SCH (12:00)
[2021-10-14] MEDS ORDERED: amLODIPine 5 MG TABLET PO SCH (09:00)
== END 2021-10-13 13:15 | disposition home or self-care (01) ==
LOC: EDUNIT# → ED 11:57 → MS2 13:32
PROVIDERS: ADMIT Internal Medicine; ATTEND Internal Medicine
DX: E86.0 Dehydration (principal); N17.9 Acute kidney failure, unspecified; D25.9 Leiomyoma of uterus, unspecified; R55 Syncope and collapse; F41.9 Anxiety disorder, unspecified; F32.A Depression, unspecified; I10 Essential (primary) hypertension; E78.5 Hyperlipidemia, unspecified; F17.210 Nicotine dependence, cigarettes, uncomplicated; F43.10 Post-traumatic stress disorder, unspecified; Z20.822 Contact with and (suspected) exposure to COVID-19; Z66 Do not resuscitate
CPT/HCPCS: 36415; 70450; 71045; 80048; 80053; 81003; 83690; 84443; 84484; 85025; 85610; 87635; 93005; 93306; 96361; 96374; 99284; 99285; A9270; G0378; J8499; 81001; 87086

== ENCOUNTER 2021-12-06 10:10 | Outpatient (CLI) | payer MEDICARE, MEDICAID ==
[2021-12-06 13:18] LABS: CHOL/HDL RATIO 7.1 (<4.4); CHOLESTEROL 285 mg/dL; HDL CHOLESTEROL 40 mg/dL; LDL CHOLESTEROL,CALCULATED 207 mg/dL; LDL/HDL RATIO 5.2 (<4.4); TRIGLYCERIDES 191 mg/dL; VLDL CHOLESTEROL 38 mg/dL
[2021-12-06 13:32] LABS: ESTIMATED AVERAGE GLUCOSE 114 mg/dL (70-100); HEMOGLOBIN A1c% 5.6 % (4.27-6.07)
== END 2021-12-06 10:11 | disposition home or self-care (01) ==
LOC: LAB.N 10:10
PROVIDERS: ATTEND Physician Assistant
DX: E11.9 Type 2 diabetes mellitus without complications (principal); E78.5 Hyperlipidemia, unspecified
CPT/HCPCS: 36415; 80061; 83036; 83721

== ENCOUNTER 2021-12-15 13:59 | Outpatient (CLI) | payer MEDICARE, MEDICAID ==
--- NOTE | 2021-12-15 17:43 | DEXA Report ---
PROCEDURE: Dexa Spine and/or Hip INDICATIONS: POST MENOPAUSAL TECHNIQUE: Dual energy x-ray absorptiometry (DXA) was performed on a [employer] System. Regions measur ed are the AP Spine, femoral neck, and if needed forearm. COMPARISON: None. FINDINGS: Lumbar Spine: Bone Mineral Density 0.86 g/cm/cm,T score -2.7, Left Hip: Bone Mineral Density 0.55 g/cm/cm,T score -3.6, Left Femoral Neck: Bone Mineral Density 0.52 g/cm/cm, T score -3.7, Impression: Osteoporosis in the lumbar spine and left hip. Patients with diagnosis of osteoporosis or osteopenia should have regular bone mineral density assess ment. For those eligible for Medicare, routine testing is allowed once every 2 years. Testing frequ ency can be increased for patients who have rapidly progressing disease or for those who are receivin g medical therapy to restore bone mass. Reviewed by: Sanchez Scott MD on 12/15/2021 5:42 PM PDT Approved by: Sanchez Scott MD on 12/15/2021 5:42 PM PDT Station ID: [id number]
== END 2021-12-15 14:00 | disposition home or self-care (01) ==
LOC: DI 13:59
PROVIDERS: ATTEND Physician Assistant
DX: Z78.0 Asymptomatic menopausal state (principal); M81.0 Age-related osteoporosis without current pathological fracture

== ENCOUNTER 2021-12-15 14:00 | Outpatient (CLI) | payer MEDICARE, MEDICAID ==
--- NOTE | 2021-12-17 11:30 | Mammography Report ---
BILATERAL DIGITAL SCREENING MAMMOGRAM 3D/2D: 12/15/2021 CLINICAL: Routine screening. Comparison is made to exams dated: 11/18/2019 mammogram, 11/04/2017 mammogram, 12/03/2015 mammogram, an d 08/29/2013 mammogram - [facility]. There are scattered areas of fibroglandular density in both breasts (category b / 25%-50% glandular t issue). No significant masses, calcifications, or other findings are seen in either breast. There has been no significant interval change. IMPRESSION: NEGATIVE There is no mammographic evidence of malignancy. A 1 year screening mammogram is recommended. Based on the Tyrer Cuzick model (a risk assessment model) the patients lifetime risk is 7.3% and her 10 year risk is 3.5%. According to the ACR, ACS, and NCCN guidelines, an annual breast MRI exam alec g with mammogram is recommended if the patients lifetime risk is 20% or greater. This exam was interpreted at Station ID: [id number]. NOTE: For mammograms, a report in lay terms will be sent to the patient. Approximately 15% of breast malignancies will not be visualized mammographically. In the management of a palpable breast mass, a negative mammogram must not discourage biopsy of a clinically suspicious lesion. Electronically Signed By: Ewa alanis/nae:12/16/2021 12:06:54 ACR BI-RADS Category 1: Negative 3341F PARENCHYMAL PATTERN: (A) - The breast(s) demonstrate(s) scattered fibroglandular densities. BI-RADS CATEGORY: (1) - 1 RECOMMENDATION: (ANNUAL) - Recommend routine annual screening mammography. [id number] 1 year screening LATERALITY: (B)
== END 2021-12-15 14:01 | disposition home or self-care (01) ==
LOC: DI 14:00
PROVIDERS: ATTEND Physician Assistant
DX: Z12.31 Encounter for screening mammogram for malignant neoplasm of breast (principal)